=== PATIENT | female | born 1945 | race Caucasian/White ===

== ENCOUNTER 2021-02-26 09:43 | Outpatient (CLI) | payer MEDICARE, BC | END 2021-02-26 09:44 | disposition home or self-care (01) | LOC: CSHCT 09:43 | PROVIDERS: ATTEND Nurse Practitioner | DX: Z01.810 Encounter for preprocedural cardiovascular examination (principal); I48.0 Paroxysmal atrial fibrillation; Z91.81 History of falling; R79.1 Abnormal coagulation profile; Z53.9 Procedure and treatment not carried out, unspecified reason | CPT/HCPCS: 80053; 82565; 85027; 85610; 86850; 86900; 86901; U0003; U0005 ==

== ENCOUNTER 2021-04-25 09:53 | Outpatient (CLI) | payer MEDICARE, BC | END 2021-04-25 09:54 | disposition home or self-care (01) | LOC: CSHCT 09:53 | PROVIDERS: ATTEND Internal Medicine Cardiovascular Disease | DX: Z95.818 Presence of other cardiac implants and grafts (principal); I48.0 Paroxysmal atrial fibrillation; C18.9 Malignant neoplasm of colon, unspecified; R91.8 Other nonspecific abnormal finding of lung field; K76.9 Liver disease, unspecified | CPT/HCPCS: 71275 ==